=== PATIENT | female | born 1985 | race Hispanic/Latino ===

== ENCOUNTER 2023-09-05 17:47 | Outpatient (CLI) | payer SELFPAY | END 2023-09-05 17:48 | disposition home or self-care (01) | LOC: NAV RAD 17:47 | PROVIDERS: ATTEND Nurse Practitioner Family | DX: M54.16 Radiculopathy, lumbar region (principal); M47.817 Spondylosis without myelopathy or radiculopathy, lumbosacral region | CPT/HCPCS: 72100 ==